=== PATIENT | female | born 2000 | race African-American/Black ===

== ENCOUNTER 2020-12-24 13:02 | Emergency (ER) | payer OTHER, SELFPAY ==
[2020-12-24 13:13] VITALS: BP 119/70; PULSE 100; RESP 15; TEMP 37.2; O2SAT 100; BMI 36.2
--- NOTE | 2020-12-24 15:06 | ED_ITS ---
HPI - Abdominal Pain General Chief Complaint: Abdominal Pain Stated Complaint: pain rt side Time Seen by Provider: 12/24/20 14:06 Source: patient Mode of arrival: ambulatory Limitations: no limitations History of Present Illness HPI narrative: This is a otherwise healthy 20-year-old female who denies any significant past medical or surgical history who presents with complaint of aching like abdominal pain some lower back pain that is been going on for the past several weeks on and off she was late for her. Did home tests and she was positive. Denies taking any control or IUD. Denies any prior or renal calculi or UTI. She does report no pain and at this time but does not have outpatient provider and wanted to know how far long she was. Denies any vaginal bleeding or discharge. No nausea vomiting or diarrhea. MD elicited complaint: abdominal pain Pertinent past history: none Location: none Quality: aching Migration to: bilateral flank Exacerbating factors: nothing Related Data Previous Rx's Medication Instructions Recorded PNV cmb#95-ferrous fumarate-FA 1 tab PO DAILY #30 tab 12/24/20 [] Allergies Allergy/AdvReac Type Severity Reaction Status Date / Time No Known Allergies Allergy Verified 12/24/20 14:06 Review of Systems Review of Systems Constitutional: No Weight loss, No Fever, No Chills, No Night Sweats, No Fatigue, No Malaise ENT/Mouth: No Hearing loss, No Ear Pain, No Nasal Congestion, No Sinus Pain, No Hoarseness, No sore throat, No Rhinorrhea, No Swallowing Difficulty Eyes: No Eye Pain, No Swelling, No Redness, No Foreign Body, No Discharge, No Vision Changes Cardiovascular: No Chest Pain, No SOB, No Dyspnea on Exertion, No Orthopnea, No Edema, No Palpitations Respiratory: No Cough, No Sputum, No Wheezing, No Smoke Exposure, No Dyspnea Gastrointestinal: No Nausea, No Vomiting, No Diarrhea, No Constipation, No Cornelius tochezia, No Melena Genitourinary: no irregular bleeding, No Dysuria, No Urinary Frequency, No Cornelius turia, No Urinary Incontinence, No Urgency, No Flank Pain, No Urinary Flow Changes, No Hesitancy Musculoskeletal: No joint pain, No Myalgias, No Joint Swelling Skin: No Skin Lesions, No rash Neuro: No Weakness, No Numbness, No Paresthesias, No Loss of Consciousness, No Dizziness, No Headache Psych: No Social Issues Heme/Lymph: No Bruising, No Bleeding,No Lymphadenopathy Endocrine: No Polyuria, No Polydipsia, No Temperature Intolerance Yes all other systems are reviewed and are negative Physical Exam Vital Signs: Vital Signs: Last Vital Signs Temp 98.4 F 12/24/20 18:00 Pulse 95 12/24/20 18:59 Resp 16 12/24/20 18:59 BP 109/66 12/24/20 18:59 Pulse Ox 96 12/24/20 18:59 Body Mass Index 36.2 Reviewed Const: General: cooperative and healthy appearing; No acute distress or intoxicated appearing Nutritional Appearance: average body habitus Orientation/consciousness: patient oriented x3 HENMT: Head: Yes normal to inspection Ears: hearing grossly normal bilaterally Eyes: General: appearance normal, both eyes and all related structures Visual Greer: normal visual greer by confrontation Neck: Neck: Yes normal visual inspection, No positive Brudzinski's sign, No positive Kernig's sign and No tender Thyroid: Thyroid normal Chest: Chest palpation & inspection: normal inspection of the chest Resp: Effort & Inspection: normal respiratory effort Cardio: Jugular venous distension: no JVD Rate: regular rate Rhythm: regular rhythm Heart sounds: S1 normal heart sound present and S2 normal heart sound present GI: Inspection: Yes normal to inspection Palpation (GI): Soft to palpation, nontender, no guarding and not rigid Percussion: Yes normal to percussion Auscultation: normal bowel sounds : General: Yes no CVA tenderness Back/Spine/Pelvis: Back: no CVA tenderness Skin: General skin exam: no rashes or lesions noted Neuro: General: patient oriented x3 Extrem: General: Yes normal to inspection Course Course Course Narrative: In review 20-year-old female with positive nonspecific lower abdominal pain and some low back pain at this time states she has pain discomfort free. Labs, hCG quant 1st trimester OB ultrasound as well as renal ultrasound ordered. Advised to remain NPO. Differential diagnosis include but not limited to early related discomfort, ectopic, spontaneous miscarriage, UTI/ STI less likely. Reevaluation(s) Reevaluation #1: In making the CBC states she may have been told in the past that she had this she is not sure. Otherwise labs are stable. HCG quant in correlation with ultrasound A tiny gestational sac may be present as described above. No poleis seen. Gestational age based upon sac size would be 4 weeks 6 days. Follow-up is recommended. Patient without pain, vaginal bleeding at this time resting comfortably. Abdominal exam reassuring. Findings reviewed with her the need for close follow-up. She does not have any OBGYN in the area she is from [place] and would like to stay with the [place] team does have discussed case with Dr. Reji PAK recommendation for follow-up in office for 48 hour hCG, discharged with SAB versus ectopic mornings which were reviewed with patient in great detail. She feels comfortable plan will discharge with vitamin. Stable for discharge. MDM - Abdominal Pain Lab Data Result diagrams: 12/24/20 15:28 12/24/20 15:28 Labs: Lab Results 12/24/20 12/24/20 12/24/20 Range/Units 15:28 15:28 15:28 WBC 6.6 (4.8-10.8) X10*3/uL RBC 4.43 (4.20-5.50) X10*6/uL Hgb 9.1 L (12.0-16.0) g/dl Hct 30.5 L (37-47) % MCV 68.8 L (80-98) fL MCH 20.5 L (27.0-33.0) pg MCHC 29.8 L (31.0-35.0) g/dl RDW 19.0 H (11.0-16.0) % Plt Count 572 H (160-400) X10*3/uL MPV 10.8 (9.4-12.3) fL Immature Gran % (Auto) 0.3 (0.0-0.4) % Neut % (Auto) 48.9 (45-73) % Lymph % (Auto) 38.2 (20-40) % Taney % (Auto) 9.4 (2-11) % Eos % (Auto) 2.4 (0-4) % Baso % (Auto) 0.8 (0-2) % Lymph # (Auto) 2.5 (1.2-4.9) X10*3/uL Taney # (Auto) 0.6 (0.1-1.2) X10*3/uL Eos # (Auto) 0.2 (0.0-0.4) X10*3/uL Baso # (Auto) 0.1 (0.0-0.2) X10*3/uL Abs Immat Gran (auto) 0.02 (0.00-0.03) X10*3/uL Absolute Neuts (auto) 3.2 (2.0-8.3) X10*3/uL Absolute Nucleated RBC 0.000 (0.0-0.012) X10*3/uL Nucleated RBC % (auto) 0.0 (0.0-0.2) /100WBC PT 12.6 (10.8-13.0) SEC INR 1.1 (0.9-1.1) APTT 32.5 (24.1-38.0) SEC Sodium 137 (135-145) mmol/L Potassium 4.6 (3.3-5.1) mmol/l Chloride 107 (96-108) mmol/L Carbon Dioxide 22 (22-29) mmol/L Anion Gap 13 (12-20) BUN 11 (9-16) mg/dL Creatinine 0.74 (0.5-1.4) mg/dL Estim Creat Clear Calc 124.2 Estimated GFR > 60 Random Glucose 73 (60-115) mg/dL Calcium 9.3 (8.4-10.2) mg/dL Total Bilirubin 0.5 (0.0-1.0) mg/dL AST 17 (5-31) U/L ALT 7 (0-31) U/L Alkaline Phosphatase 66 (39-117) U/L Total Protein 7.4 (6.5-8.0) g/dL Albumin 4.3 (3.5-5.0) g/dL Beta HCG, Quant 1429 mIU/mL Urine Color Urine Appearance Urine pH (5.0-8.0) Ur Specific [place] (1.005-1.025) Urine Protein (NEG-TRACE) MG/DL Urine Glucose (UA) (NEG) MG/DL Urine Ketones (NEG) MG/DL Urine Blood (NEG) Urine Nitrite (NEG) Ur Leukocyte Esterase (NEG) Urine RBC (0) /HPF Urine WBC (0-4) /HPF Ur Squamous Epith Cells /LPF Amorphous Sediment /LPF Urine Bacteria /LPF Granular Casts /LPF Urine Mucus /LPF Urine Test (NEGATIVE) 12/24/20 Range/Units 15:28 WBC (4.8-10.8) X10*3/uL RBC (4.20-5.50) X10*6/uL Hgb (12.0-16.0) g/dl Hct (37-47) % MCV (80-98) fL MCH (27.0-33.0) pg MCHC (31.0-35.0) g/dl RDW (11.0-16.0) % Plt Count (160-400) X10*3/uL MPV (9.4-12.3) fL Immature Gran % (Auto) (0.0-0.4) % Neut % (Auto) (45-73) % Lymph % (Auto) (20-40) % Taney % (Auto) (2-11) % Eos % (Auto) (0-4) % Baso % (Auto) (0-2) % Lymph # (Auto) (1.2-4.9) X10*3/uL Taney # (Auto) (0.1-1.2) X10*3/uL Eos # (Auto) (0.0-0.4) X10*3/uL Baso # (Auto) (0.0-0.2) X10*3/uL Abs Immat Gran (auto) (0.00-0.03) X10*3/uL Absolute Neuts (auto) (2.0-8.3) X10*3/uL Absolute Nucleated RBC (0.0-0.012) X10*3/uL Nucleated RBC % (auto) (0.0-0.2) /100WBC PT (10.8-13.0) SEC INR (0.9-1.1) APTT (24.1-38.0) SEC Sodium (135-145) mmol/L Potassium (3.3-5.1) mmol/l Chloride (96-108) mmol/L Carbon Dioxide (22-29) mmol/L Anion Gap (12-20) BUN (9-16) mg/dL Creatinine (0.5-1.4) mg/dL Estim Creat Clear Calc Estimated GFR Random Glucose (60-115) mg/dL Calcium (8.4-10.2) mg/dL Total Bilirubin (0.0-1.0) mg/dL AST (5-31) U/L ALT (0-31) U/L Alkaline Phosphatase (39-117) U/L Total Protein (6.5-8.0) g/dL Albumin (3.5-5.0) g/dL Beta HCG, Quant mIU/mL Urine Color YELLOW Urine Appearance HAZY Urine pH 5.5 (5.0-8.0) Ur Specific [place] >= 1.030 H (1.005-1.025) Urine Protein NEG (NEG-TRACE) MG/DL Urine Glucose (UA) NEG (NEG) MG/DL Urine Ketones 5 (NEG) MG/DL Urine Blood TRACE (NEG) Urine Nitrite NEG (NEG) Ur Leukocyte Esterase NEG (NEG) Urine RBC 0-2 (0) /HPF Urine WBC 1-4 (0-4) /HPF Ur Squamous Epith Cells 2+ /LPF Amorphous Sediment 1+ /LPF Urine Bacteria TRACE /LPF Granular Casts 0-2 /LPF Urine Mucus 1+ /LPF Urine Test POSITIVE H (NEGATIVE) Imaging Data First trimester OB ultrasound: Radiologist's impression: [place] [id number] ReportSigned Patient: William Shahid#: [id number]: 2000Acct:[id number]/Sex: 20 / FADM Date: 12/24/20Loc: [address]: Ordering Physician: Cristo Rick NP Date of Service: 12/24/20 Procedure(s): US OB <= 14 weeks fetus Accession Number(s): [id number] cc: Cristo Rick NP~ EXAMINATION: PELVIC ULTRASOUND CLINICAL INFORMATION: Pelvic pain with question of ectopic COMPARISON: None TECHNIQUE: Ultrasound of the pelvis was performed using both transabdominal endovaginal scanning. FINDINGS: An anteverted uterus is present measuring 7.8 x 5.5 x 6.7 cm. At least one 1 cm uterine fibroid is present. A small gestational sac is seen but no yolk sac or pole is identified. Based upon the sac size, gestational age would be 4 weeks 6 days which may be too early to see a pole. The right ovary measures 4.3 x 2.4 x 2.8 cm in a corpus luteum cyst measuring 1.8 x 1.7 x 2.1 cm. Left ovary measures 2.7 x 2.1 x 2.1 cm and appears normal. A small amount of free fluid is noted adjacent to the right ovary. US/US OB <= 14 weeks fetus IMPRESSION: A tiny gestational sac may be present as described above. No pole is seen. Gestational age based upon sac size would be 4 weeks 6 days. Follow-up is recommended Dictated By:NATHALY CONKLIN MDSigned By:<Electronically signed by NATHALY CONKLIN MD in OV>12/24/20 1757 DD/ 1504TD/TT: Program Manager Slp: KELSIE Renal ultrasound: Radiologist's impression: [address] [id number] ReportSigned Patient: William ShahidR#: [id number]: 2000Acct:[id number]/Sex: 20 / FADM Date: 12/24/20Loc: HO.EDAttending Dr: Ordering Physician: Cristo Rick NP Date of Service: 12/24/20 Procedure(s): US renal BI Accession Number(s): [id number] cc: Cristo Rick NP~ EXAMINATION: US RETROPERITONEAL LIMITED (RENAL ONLY) CLINICAL INFORMATION: Right-sided flank pain. COMPARISON: None TECHNIQUE: Multiple sonographic views of the kidneys were obtained. FINDINGS: RIGHT KIDNEY: 10.3 x 6.7 x 5.5 cm (SAG x AP x TRV). The kidney is normal in size, contour, and echogenicity. Renal cortical thickness is normal. No calculi or focal parenchymal lesions. No hydronephrosis. LEFT KIDNEY: 10.9 x 5.9 x 5.7 cm (SAG x AP x TRV). The kidney is normal in size, contour, and echogenicity. Renal cortical thickness is normal. No calculi or focal parenchymal lesions. No hydronephrosis. US/US renal BI IMPRESSION: Normal renal ultrasound. No obstructive changes seen. No renal calculi demonstrated. Dictated By:ADITI CERNA MDSigned By:<Electronically signed by ADITI CERNA MD in OV>12/24/20 1746 DD/ 1504TD/TT: Program Manager Slp: JOSE Discharge Plan Discharge Clinical Impression: Early stage of , Abdominal pain affecting Patient Disposition: Home, Self-Care Instructions: (ED), Abdominal Pain in (ED) Additional Instructions: Return to emergency room right away if use feel Early signs of an ectopic include: Light vaginal bleeding and pelvic pain Upset stomach and vomiting Sharp abdominal cramps Pain on one side of your body Dizziness or weakness Pain in your shoulder, neck, or rectum See a copy of your ultrasound was provided to you Follow-up with Dr. Reji sr in 48 hours for repeat blood test Return to emergency room right away if any concerns or worsening symptoms Thank you Prescriptions: New PNV cmb#95-ferrous fumarate-FA [] 28 mg iron- 800 mcg tablet 1 tab PO DAILY Qty: 30 RF: 0 Referrals: Henry Mendoza MD [Physician] - 2 days (Repeat labs) Interventions: ED Discharge Assessment Last Done: 12/24/20 18:58 Discharge Date/Time: 12/24/20 19:00
[2020-12-24 15:14] VITALS: BP 101/59; PULSE 80; RESP 17; TEMP 37.5; O2SAT 100
[2020-12-24] MEDS: 0.9 % Sodium Chloride 1,000 ML 999 ML IV (15:32)
[2020-12-24 15:53] LABS: MANUAL DIFF FLAG NO
[2020-12-24 15:57] LABS: Basophils Absolute Auto 0.1 X10*3/uL (0.0-0.2); Basophils Percent Auto 0.8 % (0-2); Eosinophils Absolute Auto 0.2 X10*3/uL (0.0-0.4); Eosinophils Percent Auto 2.4 % (0-4); Hematocrit 30.5 % (37-47); Hemoglobin 9.1 g/dl (12.0-16.0); Imm Gran Abs Auto 0.02 X10*3/uL (0.00-0.03); Imm Gran Pct Auto 0.3 % (0.0-0.4); Lymphocytes Absolute Auto 2.5 X10*3/uL (1.2-4.9); Lymphocytes Percent Auto 38.2 % (20-40); Mean Corpuscular HGB Conc 29.8 g/dl (31.0-35.0); Mean Corpuscular Hemoglobin 20.5 pg (27.0-33.0); Mean Corpuscular Volume 68.8 fL (80-98); Mean Platelet Volume 10.8 fL (9.4-12.3); Monocytes Absolute Auto 0.6 X10*3/uL (0.1-1.2); Monocytes Percent Auto 9.4 % (2-11); Neutrophils Absolute Auto 3.2 X10*3/uL (2.0-8.3); Neutrophils Percent Auto 48.9 % (45-73); Platelet Count 572 X10*3/uL (160-400); Red Blood Count 4.43 X10*6/uL (4.20-5.50); White Blood Count 6.6 X10*3/uL (4.8-10.8)
[2020-12-24 15:58] LABS: Glucose Urine UA NEG (NEG); Leukocyte Esterase Urine NEG (NEG); Nitrite Urine NEG (NEG); PH 5.5 (5.0-8.0); Specific Gravity - Urine >= 1.030 (1.005-1.025); Urine Blood TRACE (NEG); Urine Ketones 5 MG/DL (NEG); Urine Protein NEG (NEG-TRACE)
[2020-12-24 16:04] LABS: INTERNATIONAL NORM RATIO 1.1 (0.9-1.1); Prothrombin Time 12.6 SEC (10.8-13.0)
[2020-12-24 16:07] LABS: Partial Thromboplastin Time 32.5 SEC (24.1-38.0)
[2020-12-24 16:18] LABS: Amorphous Sediment Urine 1+ /LPF; Bacteria Urine TRACE /LPF; Granular Casts Urine 0-2 /LPF; Mucus Urine 1+ /LPF; RBC Urine 0-2 /HPF (0); Squamous Epithelial Cell Urine 2+ /LPF
[2020-12-24 16:32] LABS: Alanine Aminotransferase 7 U/L (0-31); Albumin Level 4.3 g/dL (3.5-5.0); Alkaline Phosphatase 66 U/L (39-117); Anion Gap 13 (12-20); Aspartate Amino Transferase 17 U/L (5-31); Bilirubin Total 0.5 mg/dL (0.0-1.0); Blood Urea Nitrogen 11 mg/dL (9-16); Calcium 9.3 mg/dL (8.4-10.2); Carbon Dioxide 22 mmol/L (22-29); Chloride 107 mmol/L (96-108); Creatinine Clr Calc Pharmacy 124.2; Estimated Glomerular Filt Rate > 60; Glucose Random 73 mg/dL (60-115); Potassium 4.6 mmol/l (3.3-5.1); Sodium 137 mmol/L (135-145); Total Protein 7.4 g/dL (6.5-8.0)
[2020-12-24 16:38] LABS: Appearance Urine HAZY; Color Urine YELLOW
[2020-12-24 16:40] LABS: HCG Quantitative 1429 mIU/mL
[2020-12-24 16:46] LABS: UPreg QC Valid YES; Urine Pregnancy POSITIVE (NEGATIVE)
[2020-12-24 17:39] VITALS: BP 119/66; PULSE 104; RESP 17; TEMP 37.1; O2SAT 100
[2020-12-24 18:00] VITALS: BP 106/61; PULSE 92; RESP 17; TEMP 36.9; O2SAT 99
--- NOTE | 2020-12-24 18:53 | P.CONOB_ITS ---
TOUCH UP PAINTER HAND - CN: HPI Data of Consult Consult date: 12/24/20 Primary Care Provider: None Physician Consult Narrative Narrative: Called by a LARISSA Roland regarding William Shahid is a 20 year old female who presented to the emergency room with mild suprapubic pain no vaginal bleeding no other hCG 1429 ultrasound showed intrauterine gestational sac measuring 4 weeks days no pole or yolk sac, no adnexal masses, no pelvic fluid identified by ultrasound, hematocrit 30.5 cc:: CC: COMPUTER SYSTEMS MANAGER - Review of Systems Review of Systems ROS Unobtainable: All systems reviewed & are unremarkable except as noted in HPI and below Cardiovascular: Denies Palpatations, Loss of consciousness and Chest pain Respiratory: Denies Cough, Wheezing and Shortness of breath Musculoskeletal: Denies Low back pain Gastrointestinal: Denies Heartburn, Constipation, Diarrhea, Nausea and Vomiting Genitourinary: Denies Pain with urination, Burning with urination and Urinary frequency Neurological: Denies Migranes Psychological: Denies Depression OB [facility] Social History Social History Smoked in Last 30 Days: No Use of substances other than those prescribed or required for medical reasons: No Advance Directives: No Advance Directives Information Provided: No Meds Allergies Allergy/AdvReac Type Severity Reaction Status Date / Time No Known Allergies Allergy Verified 12/24/20 14:06 TOUCH UP PAINTER HAND Physical Exam Vitals Vital signs: Temp Pulse Resp BP Pulse Ox 98.4 F 92 17 106/61 99 12/24/20 18:00 12/24/20 18:00 12/24/20 18:00 12/24/20 18:00 12/24/20 18:00 Body Mass Index 36.2 Cardiovascular Auscultation: RRR Abdomen Auscultation/Inspection/Palpation: Normal bowel sounds, Soft, Non-distended, No tenderness and Other (Exam per LARISSA Roland) Female Genitalia (Pelvic) Exam: Deferred TOUCH UP PAINTER HAND - Results Labs CBC & Chem 7: 12/24/20 15:28 12/24/20 15:28 Labs: Short CBC 12/24/20 Range/Units 15:28 WBC 6.6 (4.8-10.8) X10*3/uL Hgb 9.1 L (12.0-16.0) g/dl Hct 30.5 L (37-47) % Plt Count 572 H (160-400) X10*3/uL BMP 12/24/20 15:28 Sodium 137 Potassium 4.6 Chloride 107 Carbon Dioxide 22 BUN 11 Creatinine 0.74 Calcium 9.3 Liver Function 12/24/20 Range/Units 15:28 Total Bilirubin 0.5 (0.0-1.0) mg/dL AST 17 (5-31) U/L ALT 7 (0-31) U/L Alkaline Phosphatase 66 (39-117) U/L Albumin 4.3 (3.5-5.0) g/dL Urine 12/24/20 Range/Units 15:28 Urine Color YELLOW Urine Appearance HAZY Urine pH 5.5 (5.0-8.0) Ur Specific [place] >= 1.030 H (1.005-1.025) Urine Protein NEG (NEG-TRACE) MG/DL Urine Glucose (UA) NEG (NEG) MG/DL Urine Test POSITIVE H (NEGATIVE) Assessment and Plan (1) Early stage of : Status: Acute Discussed the differential diagnosis with LARISSA Roland including early versus possible ectopic , ultrasound showing gestational sac without yolk sac or embryo could be pseudo gestational sac in cases of ectopic . Since clinically the patient is stable with no abdominal finding no evidence of adnexal masses clinically stable recommended Repeat hCG in 48 hours and to follow-up in the office then, SAB versus ectopic warnings to be given to the patient she is to call if abdominal pain occurs vaginal bleeding.
[2020-12-24 18:59] VITALS: BP 109/66; PULSE 95; RESP 16; O2SAT 96
== END 2020-12-24 19:00 | disposition home or self-care (01) ==
PROVIDERS: Nurse Practitioner Primary Care; Emergency Provider Emergency Medicine Emergency Medical Services
DX: O26.891 Other specified pregnancy related conditions, first trimester (principal); R10.2 Pelvic and perineal pain; O34.81 Maternal care for other abnormalities of pelvic organs, first trimester; N83.11 Corpus luteum cyst of right ovary; Z3A.01 Less than 8 weeks gestation of pregnancy
CPT/HCPCS: 36415; 76775; 76801; 76817; 80053; 81001; 81025; 84702; 85025; 85610; 85730; 96360; 99283; 99284

== ENCOUNTER → 2021-01-07 09:14 | Outpatient (BNVA) | payer OTHER, SELFPAY | PROVIDERS: Visit Provider Obstetrics & Gynecology | DX: Z34.90 Encounter for supervision of normal pregnancy, unspecified, unspecified trimester (principal) | CPT/HCPCS: 99212 ==

== ENCOUNTER 2021-01-08 10:48 | Outpatient (REF) | payer OTHER, SELFPAY ==
--- NOTE | ~2021-01-08 | US_ITS ---
EXAMINATION: FIRST TRIMESTER OB ULTRASOUND CLINICAL INFORMATION: Encounter for supervision abnormal . Follow-up intrauterine gestational sac seen on prior exam exam COMPARISON: Previous first trimester OB ultrasound 12/24/2020 TECHNIQUE: Transabdominal first trimester OB ultrasound FINDINGS: There is an intrauterine gestational sac. Elroy-rump length measures 0.66 cm suggesting gestational age of 6 weeks 4 days with estimated date of delivery of 08/30/2021. There is a low normal heart rate of 114 bpm. There is a yolk sac. There is an irregularly-shaped hypoechoic collection along the anterior superior gestational sac measuring 1.8 x 1.2 x 1.8 cm suggestive of small subchorionic hemorrhage. There is a 1 cm fibroid in the anterior lower uterine segment. The right maternal ovary measures 4.5 x 2.5 x 4.1 cm and contains a 2.3 x 1.9 x 2.2 cm complex cyst. The left ovary is normal-appearing and measures 2.6 x 2.2 x 1.5 cm. There is trace fluid in the pelvis. US/US OB <= 14 weeks fetus IMPRESSION: Single viable intrauterine . From today's measurements, gestational age is estimated at 6 weeks 4 days with estimated date of delivery of 08/30/2021. Low normal heart rate of 114 bpm. 1.8 x 1.2 x 1.8 cm fluid collection adjacent to the gestational sac suggestive of subchorionic hemorrhage.
== END 2021-01-08 10:49 | disposition home or self-care (01) ==
LOC: HO.US 10:48
PROVIDERS: Visit Provider Obstetrics & Gynecology
DX: O35.9XX0 Maternal care for (suspected) fetal abnormality and damage, unspecified, not applicable or unspecified (principal); Z3A.01 Less than 8 weeks gestation of pregnancy
CPT/HCPCS: 76801

== ENCOUNTER 2021-01-15 20:08 | Emergency (ER) | payer OTHER, SELFPAY ==
--- NOTE | ~2021-01-15 | US_ITS ---
EXAMINATION: US OBSTETRICAL CLINICAL INFORMATION: Bleeding and pain. 7 weeks . COMPARISON: 01/08/2021 TECHNIQUE: Real-time ultrasound was performed transabdominally of the pelvis. FINDINGS: The uterus is anteverted in position. Within the endometrial cavity is a well formed gestation sac. A yolk sac is present. The crown-rump length of 1.65 cm corresponds to a menstrual age of 8 weeks 1 day. This yields an estimated date of delivery of 08/27/2021. This corresponds with gestational age by last menstrual period. anatomic survey is normal for age. The heart beat is regular and normal rate measuring 156 beats per minute. There is a small fluid collection adjacent to the gestational sac measuring 1 x 0.6 x 0.6 cm, decreased in size from prior. Both ovaries are identified. The right ovary measures 4.6 x 3.4 x 3.3 cm. There is a corpus luteal cyst present. The left ovary measures 3.9 x 2.4 x 1.7 cm. No adnexal mass. Other significant findings: No free fluid. US/US OB <= 14 weeks fetus IMPRESSION: Single live intrauterine estimated to be 8 weeks 1 day menstrual age. Estimated date of delivery is 08/27/2021. Decreasing size of the fluid collection adjacent to the gestational sac suggesting resolving subchorionic hemorrhage.
[2021-01-15 21:45] VITALS: BP 107/88; PULSE 97; RESP 18; TEMP 37.2; O2SAT 97; BMI 36.6
[2021-01-15 22:23] LABS: Glucose Urine UA NEG (NEG); Leukocyte Esterase Urine NEG (NEG); Nitrite Urine NEG (NEG); PH 6.5 (5.0-8.0); Urine Blood NEG (NEG); Urine Ketones 5 MG/DL (NEG); Urine Protein NEG (NEG-TRACE)
[2021-01-15 22:24] LABS: Appearance Urine CLEAR; Color Urine YELLOW
[2021-01-15 22:25] LABS: UPreg QC Valid YES; Urine Pregnancy POSITIVE (NEGATIVE)
[2021-01-15 23:33] VITALS: BP 127/66; PULSE 88; RESP 16; O2SAT 99
--- NOTE | 2021-01-15 23:33 | ED.PREGNANCY ---
HPI - General Chief complaint: Vaginal Bleeding Stated complaint: vag bleed Time Seen by Provider: 01/15/21 23:31 Source: patient Mode of arrival: ambulatory Limitations: no limitations History of Present Illness HPI Narrative: 20 yo female G1 D = US follows at [facility] [place] comes in with c/o of early this AM had pelvic cramping and one episode of brb but no clots - has not had any other symptoms the rest of the day, no recent intercourse has known subchorionic hemorrhage from US on 01/08 MD Complaint: vaginal bleeding and abdominal trauma Onset (ago): day(s) (several ) Pain Consistency: other (RESOLVED) Location: pelvis Severity: mild Quality: Cramping Radiation: pelvis Relieving factors: none Exacerbating factors: none Associated symptoms: vaginal bleeding (one episode of brb no clots) Vaginal discharge: none Vaginal bleeding: light OB History - Current : no complications OB History - Previous Pregnancies: no complications care: followed by OB and previous ultrasound confirms IUP Related Data : 1 Previous Rx's Medication Instructions Recorded PNV cmb#95-ferrous fumarate-FA 1 tab PO DAILY #30 tab 12/24/20 [] Allergies Allergy/AdvReac Type Severity Reaction Status Date / Time No Known Allergies Allergy Verified 01/15/21 21:45 Review of Systems Review of Systems: Constitutional : No Fever, No Chills ENT/Mouth : No sore throat, No Rhinorrhea Eyes: No Eye Pain, No Redness Cardiovascular : No Chest Pain, No SOB Respiratory : No Cough, No Sputum, No Wheezing Gastrointestinal : no Nausea, No Vomiting, No Diarrhea, positive abdominal pain, Genitourinary : positive irregular bleeding, No Dysuria, No Urinary Frequency, positive pelvic pain Musculoskeletal : No Myalgias Skin : No rash Neuro : No Weakness, No Headache Psych : No Anxiety/Panic, No Depression Heme/Lymph: No bruising, No Lymphadenopathy Endocrine : No Polyuria, No Polydipsia All other systems reviewed and are negative PMFSH Past Medical History Medical History Anemia : 1 Social History Social History Alcohol intake: never Smoking Status: Never smoker Advance Directives: No Advance Directives Information Provided: Yes Physical Exam Vital Signs: Vital Signs: Last Vital Signs Temp 99.0 F 01/15/21 21:45 Pulse 86 01/16/21 02:14 Resp 20 01/16/21 02:14 BP 125/76 01/16/21 02:14 Pulse Ox 100 01/16/21 02:14 Body Mass Index 36.6 Appearance: Alert. Oriented X3. No acute distress. Eyes: Pupils equal, round and reactive to light. ENT: Pharynx normal. Neck: Normal inspection. Neck supple. CVS: Normal heart rate and rhythm. Pulses normal. Respiratory: No respiratory distress. Breath sounds normal. Abdomen: Soft and nontender. : os closed no blood noted Skin: Skin warm and dry. Normal skin color. Normal skin turgor. Extremities: No lower extremity edema. No calf ttp Neuro: Oriented X 3. No motor deficit. No sensory deficit. Course Course Course Narrative: will give Rhogam - discussed with Dr. Tsai MDM - OB/Uterine Contractions MDM Narrative Medical decision making narrative: [age]yo female with pelvic pain and brb this AM not related to intercourse has resolved she is G1 has known IUP with subchorionic hemorrhage at this time will obtain labs, quant, Rh status and pelvic US dispo per results and findings. Lab Data Result diagrams: 01/15/21 23:38 01/15/21 23:38 Labs: Lab Results 01/15/21 01/15/21 01/15/21 Range/Units 21:55 23:38 23:38 WBC 9.6 (4.8-10.8) X10*3/uL RBC 4.71 (4.20-5.50) X10*6/uL Hgb 10.5 L (12.0-16.0) g/dl Hct 34.1 L (37-47) % MCV 72.4 L (80-98) fL MCH 22.3 L (27.0-33.0) pg MCHC 30.8 L (31.0-35.0) g/dl RDW 24.9 H (11.0-16.0) % Plt Count 353 D (160-400) X10*3/uL MPV 10.0 (9.4-12.3) fL Immature Gran % (Auto) 0.2 (0.0-0.4) % Neut % (Auto) 57.0 (45-73) % Lymph % (Auto) 30.9 (20-40) % Dent % (Auto) 6.5 (2-11) % Eos % (Auto) 4.7 H (0-4) % Baso % (Auto) 0.7 (0-2) % Lymph # (Auto) 3.0 (1.2-4.9) X10*3/uL Dent # (Auto) 0.6 (0.1-1.2) X10*3/uL Eos # (Auto) 0.5 H (0.0-0.4) X10*3/uL Baso # (Auto) 0.1 (0.0-0.2) X10*3/uL Abs Immat Gran (auto) 0.02 (0.00-0.03) X10*3/uL Absolute Neuts (auto) 5.5 (2.0-8.3) X10*3/uL Absolute Nucleated RBC 0.000 (0.0-0.012) X10*3/uL Nucleated RBC % (auto) 0.0 (0.0-0.2) /100WBC PT 11.9 (10.8-13.0) SEC INR 1.0 (0.9-1.1) APTT 32.2 (24.1-38.0) SEC Sodium (135-145) mmol/L Potassium (3.3-5.1) mmol/L Chloride (96-108) mmol/L Carbon Dioxide (22-29) mmol/L Anion Gap (12-20) BUN (9-16) mg/dL Creatinine (0.5-1.4) mg/dL Estim Creat Clear Calc Estimated GFR Random Glucose (60-115) mg/dL Calcium (8.4-10.2) mg/dL Total Bilirubin (0.0-1.0) mg/dL Direct Bilirubin (0.0-0.5) mg/dL AST (5-31) U/L ALT (0-31) U/L Alkaline Phosphatase (39-117) U/L Total Protein (6.5-8.0) g/dL Albumin (3.5-5.0) g/dL Beta HCG, Quant mIU/mL Urine Color YELLOW Urine Appearance CLEAR Urine pH 6.5 (5.0-8.0) Ur Specific [place] 1.020 (1.005-1.025) Urine Protein NEG (NEG-TRACE) MG/DL Urine Glucose (UA) NEG (NEG) MG/DL Urine Ketones 5 (NEG) MG/DL Urine Blood NEG (NEG) Urine Nitrite NEG (NEG) Ur Leukocyte Esterase NEG (NEG) Urine Test POSITIVE H (NEGATIVE) Blood Type 01/15/21 01/15/21 Range/Units 23:38 23:38 WBC (4.8-10.8) X10*3/uL RBC (4.20-5.50) X10*6/uL Hgb (12.0-16.0) g/dl Hct (37-47) % MCV (80-98) fL MCH (27.0-33.0) pg MCHC (31.0-35.0) g/dl RDW (11.0-16.0) % Plt Count (160-400) X10*3/uL MPV (9.4-12.3) fL Immature Gran % (Auto) (0.0-0.4) % Neut % (Auto) (45-73) % Lymph % (Auto) (20-40) % Dent % (Auto) (2-11) % Eos % (Auto) (0-4) % Baso % (Auto) (0-2) % Lymph # (Auto) (1.2-4.9) X10*3/uL Dent # (Auto) (0.1-1.2) X10*3/uL Eos # (Auto) (0.0-0.4) X10*3/uL Baso # (Auto) (0.0-0.2) X10*3/uL Abs Immat Gran (auto) (0.00-0.03) X10*3/uL Absolute Neuts (auto) (2.0-8.3) X10*3/uL Absolute Nucleated RBC (0.0-0.012) X10*3/uL Nucleated RBC % (auto) (0.0-0.2) /100WBC PT (10.8-13.0) SEC INR (0.9-1.1) APTT (24.1-38.0) SEC Sodium 135 (135-145) mmol/L Potassium 3.8 (3.3-5.1) mmol/L Chloride 103 (96-108) mmol/L Carbon Dioxide 23 (22-29) mmol/L Anion Gap 13 (12-20) BUN 7 L (9-16) mg/dL Creatinine 0.73 (0.5-1.4) mg/dL Estim Creat Clear Calc 126.6 Estimated GFR > 60 Random Glucose 82 (60-115) mg/dL Calcium 9.6 (8.4-10.2) mg/dL Total Bilirubin 0.4 (0.0-1.0) mg/dL Direct Bilirubin < 0.2 (0.0-0.5) mg/dL AST 17 (5-31) U/L ALT 10 (0-31) U/L Alkaline Phosphatase 54 (39-117) U/L Total Protein 7.3 (6.5-8.0) g/dL Albumin 4.3 (3.5-5.0) g/dL Beta HCG, Quant [id number] mIU/mL Urine Color Urine Appearance Urine pH (5.0-8.0) Ur Specific [place] (1.005-1.025) Urine Protein (NEG-TRACE) MG/DL Urine Glucose (UA) (NEG) MG/DL Urine Ketones (NEG) MG/DL Urine Blood (NEG) Urine Nitrite (NEG) Ur Leukocyte Esterase (NEG) Urine Test (NEGATIVE) Blood Type A Negative Discharge Plan Discharge Clinical Impression: Subchorionic hematoma Qualifiers: Fetus number: single or unspecified fetus Trimester: first trimester Qualified Code(s): O41.8X10 - Other specified disorders of amniotic fluid and membranes, first trimester, not applicable or unspecified Patient Disposition: Home, Self-Care Instructions: Rho(D) Immune Globulin (By injection), Subchorionic Hemorrhage (ED) Additional Instructions: return to ED for any worsening symptoms or concerns Prescriptions: No Action PNV cmb#95-ferrous fumarate-FA [] 28 mg iron- 800 mcg tablet 1 tab PO DAILY Qty: 30 RF: 0 Referrals: Henry Mendoza MD [Physician] - 2 days Stand Alone Forms: Work/School Release Interventions: ED Discharge Assessment Last Done: 01/16/21 02:25 Discharge Date/Time: 01/16/21 02:26
--- NOTE | 2021-01-15 23:34 | PC.NURSE ---
at bedside for primary eval.
[2021-01-15] MEDS: 0.9 % Sodium Chloride 1,000 ML 999 ML IVCONT (23:45)
[2021-01-15 23:49] LABS: MANUAL DIFF FLAG NO
--- NOTE | 2021-01-15 23:49 | PC.NURSE ---
IV established, labs obtained and sent. Pt aware of plan to U/S. Pt resting in bed, call deleon within reach, awaiting US. VSS. Continue to monitor.
[2021-01-15 23:50] LABS: Basophils Absolute Auto 0.1 X10*3/uL (0.0-0.2); Basophils Percent Auto 0.7 % (0-2); Eosinophils Absolute Auto 0.5 X10*3/uL (0.0-0.4); Eosinophils Percent Auto 4.7 % (0-4); Hematocrit 34.1 % (37-47); Hemoglobin 10.5 g/dl (12.0-16.0); Imm Gran Abs Auto 0.02 X10*3/uL (0.00-0.03); Imm Gran Pct Auto 0.2 % (0.0-0.4); Lymphocytes Percent Auto 30.9 % (20-40); Mean Corpuscular HGB Conc 30.8 g/dl (31.0-35.0); Mean Corpuscular Hemoglobin 22.3 pg (27.0-33.0); Mean Corpuscular Volume 72.4 fL (80-98); Monocytes Absolute Auto 0.6 X10*3/uL (0.1-1.2); Monocytes Percent Auto 6.5 % (2-11); Neutrophils Absolute Auto 5.5 X10*3/uL (2.0-8.3); Platelet Count 353 X10*3/uL (160-400); Red Blood Count 4.71 X10*6/uL (4.20-5.50); Red Cell Distribution Width 24.9 % (11.0-16.0); White Blood Count 9.6 X10*3/uL (4.8-10.8)
[2021-01-15 23:56] LABS: Prothrombin Time 11.9 SEC (10.8-13.0)
[2021-01-15 23:58] LABS: Partial Thromboplastin Time 32.2 SEC (24.1-38.0)
[2021-01-16 00:28] LABS: Alanine Aminotransferase 10 U/L (0-31); Albumin Level 4.3 g/dL (3.5-5.0); Alkaline Phosphatase 54 U/L (39-117); Anion Gap 13 (12-20); Aspartate Amino Transferase 17 U/L (5-31); Bilirubin Direct < 0.2 mg/dL (0.0-0.5); Bilirubin Total 0.4 mg/dL (0.0-1.0); Blood Urea Nitrogen 7 mg/dL (9-16); Calcium 9.6 mg/dL (8.4-10.2); Carbon Dioxide 23 mmol/L (22-29); Chloride 103 mmol/L (96-108); Creatinine Clr Calc Pharmacy 126.6; Estimated Glomerular Filt Rate > 60; Glucose Random 82 mg/dL (60-115); Potassium 3.8 mmol/L (3.3-5.1); Sodium 135 mmol/L (135-145); Total Protein 7.3 g/dL (6.5-8.0)
--- NOTE | 2021-01-16 00:31 | PC.NURSE ---
Off to U/S on hospital bed.
--- NOTE | 2021-01-16 01:23 | PC.NURSE ---
Pt brought to U/S in wheelchair by this RN.
--- NOTE | 2021-01-16 02:00 | PC.NURSE ---
MD at bedside for pelvic, this RN as barkeeper, pt tolerating procedure well.
[2021-01-16] MEDS: Rho(D) Immune Globulin 300 MCG SYRINGE IM (02:10)
[2021-01-16 02:14] VITALS: BP 125/76; PULSE 86; RESP 20; O2SAT 100
--- NOTE | 2021-01-16 02:14 | PC.NURSE ---
Medicated with Rhogam to right deltoid. IV removed. VSS. Awaiting discharge.
== END 2021-01-16 02:26 | disposition home or self-care (01) ==
PROVIDERS: Emergency Provider Emergency Medicine
DX: O41.8X10 Other specified disorders of amniotic fluid and membranes, first trimester, not applicable or unspecified (principal); O36.0910 Maternal care for other rhesus isoimmunization, first trimester, not applicable or unspecified; O99.011 Anemia complicating pregnancy, first trimester; O34.81 Maternal care for other abnormalities of pelvic organs, first trimester; N83.11 Corpus luteum cyst of right ovary; Z3A.08 8 weeks gestation of pregnancy
CPT/HCPCS: 36415; 76801; 80048; 80076; 81003; 81025; 84702; 85025; 85610; 85730; 86900; 86901; 96360; 96372; 99284; J2790

== ENCOUNTER 2021-01-22 10:27 | Outpatient (REF) | payer OTHER, SELFPAY ==
--- NOTE | ~2021-01-22 | US_ITS ---
EXAMINATION: US OBSTETRICAL ULTRASOUND CLINICAL INFORMATION: Encounter for supervision abnormal . COMPARISON: Previous exams most recent 01/16/2021. LMP: 01/23/2020. Gestational age by maternal dates is 8 weeks 5 days. Estimated date of delivery by maternal dates is 08/29/2021. TECHNIQUE: Transabdominal first trimester OB ultrasound FINDINGS: There is a single intrauterine gestational sac with visible yolk sac, embryo/fetus, and cardiac activity. There is a small hypoechoic collection anterior to the gestational sac measuring 1 x 0.4 x 1.2 cm questionable for small subchorionic hemorrhage. HR: 165 beats per minute. CRL (crown rump length): 2.3 cm (9 weeks 0 days +/- 4 days). BEBA (estimated date of delivery): 08/27/2021 +/- 4 days. MATERNAL ADNEXA: The right maternal ovary measures 6 x 2.7 x 2.8 cm. There is a 3.1 x 2.5 x 2.2 cm complex right ovarian cyst probably representing a corpus luteal cyst.. The left maternal ovary measures 3.3 x 1.5 x 2.7 cm. No maternal pelvic ascites. US/US OB <= 14 weeks fetus IMPRESSION: 1. Single intrauterine gestation with ultrasound gestational age of 9 weeks 0 days +/- 4 days. 2. Estimated date of delivery is 08/27/2021 +/- 4 days. 3. Enlarged right ovary. 3.1 x 2.5 x 2.2 cm probable complex luteal cyst.
== END 2021-01-22 10:28 | disposition home or self-care (01) ==
LOC: HO.US 10:27
PROVIDERS: Visit Provider Obstetrics & Gynecology
DX: Z34.90 Encounter for supervision of normal pregnancy, unspecified, unspecified trimester (principal); Z3A.08 8 weeks gestation of pregnancy
CPT/HCPCS: 76801

== ENCOUNTER → 2021-01-24 11:41 | Outpatient (BNVA) | payer OTHER, SELFPAY | PROVIDERS: Visit Provider Obstetrics & Gynecology ==

== ENCOUNTER → 2021-01-29 13:12 | Outpatient (BNVA) | payer OTHER, SELFPAY | PROVIDERS: Visit Provider Advanced Practice Midwife | DX: Z13.89 Encounter for screening for other disorder (principal) | CPT/HCPCS: 99212 ==

== ENCOUNTER 2021-02-13 08:57 | Outpatient (REF) | payer OTHER, SELFPAY ==
[2021-02-13 17:54] LABS: CT PCR NOT DETECTED (Not Detect.); NG PCR NOT DETECTED (Not Detect.)
[2021-02-14 09:52] LABS: BV Int Neg Control Negative (Negative); BV Int Pos Control Positive (Positive)
== END 2021-02-13 08:58 | disposition home or self-care (01) ==
LOC: HO.LAB 08:57
PROVIDERS: Visit Provider Advanced Practice Midwife
DX: O99.011 Anemia complicating pregnancy, first trimester (principal); F17.200 Nicotine dependence, unspecified, uncomplicated; Z12.4 Encounter for screening for malignant neoplasm of cervix
CPT/HCPCS: 81003; 87480; 87491; 87510; 87591; 87660; 88142; 99212

== ENCOUNTER 2021-02-14 12:17 | Outpatient (REF) | payer OTHER, SELFPAY | END 2021-02-14 12:18 | disposition home or self-care (01) | LOC: HO.LAB 12:17 | PROVIDERS: Visit Provider Advanced Practice Midwife | DX: Z13.89 Encounter for screening for other disorder (principal) ==

== ENCOUNTER 2021-02-15 11:26 | Outpatient (REF) | payer OTHER, SELFPAY ==
--- NOTE | ~2021-02-15 | US_ITS ---
EXAMINATION: OBSTETRICAL ULTRASOUND, FIRST TRIMESTER HISTORY: 20-year-old at 12.1 weeks of gestation BMI 37.9 NT screening COMPARISON: 01/22/2021 TECHNIQUE: Real time transabdominal imaging with color and M-mode Doppler. FINDINGS: A single, live IUP CRL of 57.6 mm c/w 12.3wks is noted. Heart Rate: 163 beats per minute. Normal yolk sac seen. NT was 1.05.mm. NB Present The embryo appears sonographically wnl for this GA. Both maternal ovaries are seen and appear normal. GESTATIONAL AGE: 1. Established GA: 12.1 wks 2. GA from AUA: 12.3 wks ESTIMATED DATE OF DELIVERY: 1. Established BEBA: 08/29/2021 2. BEBA from A: 08/27/2021 US/US OB 1T nuc measure IMPRESSION: 1. A single live IUP 2. Size equals dates 3. NT of 1.05 mm MFM Consultation: I reviewed the ultrasound findings along with significance of NT measurement. The NT of less than 3mm is generally reassuring. However, the sensitivity for T21 detection is only 60%. I reviewed the availability of serum aneuploidy screening which includes cell-free DNA and placental protein based tests. I discussed the sensitivity, false-positive rate, and other limitations associated with each test. I also reviewed the availability of invasive diagnostic tests that are associated small but definite risk of miscarriage. We also reviewed the differences between screening tests and diagnostic tests. After our discussion, she opted for the First trimester screening that is based on cell-free DNA or non-invasive testing (NIPT). The result will be faxed to your office in approximately 7 days. A follow up at 18 weeks for survey has been scheduled. Thank you very much for this referral. Total time 20 minutes. The time spent was devoted to counseling the patient about the disease and diagnosis, coordinating care including reviewing her records, pertinent lab data and studies, as well as discussing diagnostic evaluation and workup, plan therapeutic interventions and future disposition of care. This includes any additional research needed to obtain further information in formulating the plan of care of this patient. This note was generated with a voice recognition program. Please excuse any errors which may have been overlooked during my review of this note. Sometimes these errors may affect the content or meaning of a given sentence.
== END 2021-02-15 11:27 | disposition home or self-care (01) ==
LOC: HO.US 11:26
PROVIDERS: Visit Provider Advanced Practice Midwife
DX: Z34.91 Encounter for supervision of normal pregnancy, unspecified, first trimester (principal); Z36.82 Encounter for antenatal screening for nuchal translucency
CPT/HCPCS: 76813

== ENCOUNTER 2021-03-13 09:20 | Outpatient (REF) | payer OTHER, SELFPAY ==
[2021-03-13 11:43] LABS: MANUAL DIFF FLAG NO
[2021-03-13 11:53] LABS: Basophils Absolute Auto 0.1 X10*3/uL (0.0-0.2); Basophils Percent Auto 0.7 % (0-2); Eosinophils Absolute Auto 0.4 X10*3/uL (0.0-0.4); Eosinophils Percent Auto 5.6 % (0-4); Hematocrit 37.4 % (37-47); Hemoglobin 11.9 g/dl (12.0-16.0); Imm Gran Abs Auto 0.01 X10*3/uL (0.00-0.03); Imm Gran Pct Auto 0.1 % (0.0-0.4); Lymphocytes Absolute Auto 1.9 X10*3/uL (1.2-4.9); Lymphocytes Percent Auto 27.4 % (20-40); Mean Corpuscular HGB Conc 31.8 g/dl (31.0-35.0); Mean Corpuscular Hemoglobin 25.3 pg (27.0-33.0); Mean Corpuscular Volume 79.4 fL (80-98); Mean Platelet Volume 10.7 fL (9.4-12.3); Monocytes Absolute Auto 0.5 X10*3/uL (0.1-1.2); Monocytes Percent Auto 6.8 % (2-11); Neutrophils Percent Auto 59.4 % (45-73); Platelet Count 273 X10*3/uL (160-400); Red Blood Count 4.71 X10*6/uL (4.20-5.50); Red Cell Distribution Width 21.3 % (11.0-16.0); White Blood Count 6.8 X10*3/uL (4.8-10.8)
[2021-03-13 12:26] LABS: Amphetamine Screen Urine Not Detected (Not Detect); Barbiturates, Urine Not Detected (Not Detect); Benzodiazepines Screen Urine Not Detected (Not Detect); Cannabinoid Screen Urine Not Detected (Not Detect); Cocaine Screen Urine Not Detected (Not Detect); Opiate Screen Urine Not Detected (Not Detect); Phencyclidine Screen Urine Not Detected (Not Detect)
[2021-03-13 12:28] LABS: Sickle Cell Scr NEGATIVE (NEGATIVE)
[2021-03-13 16:52] LABS: Glucose Urine UA NEG (NEG); Leukocyte Esterase Urine NEG (NEG); Nitrite Urine NEG (NEG); Specific Gravity - Urine >= 1.030 (1.005-1.025); Urine Blood NEG (NEG); Urine Ketones NEG (NEG); Urine Protein NEG (NEG-TRACE)
[2021-03-13 16:59] LABS: Appearance Urine CLOUDY; Color Urine YELLOW
[2021-03-13 17:00] LABS: Mucus Urine TRACE /LPF; RBC Urine 0 /HPF (0); Squamous Epithelial Cell Urine TRACE /LPF; WBC Urine 0 /HPF (0-4)
[2021-03-15 07:50] LABS: HIV AB/AG Nonreactive (Nonreactive); HIV Num 1 0.06 S/CO (0.00-0.99); ~Hepatitis C Antibody Nonreactive (Nonreactive)
[2021-03-15 08:07] LABS: HBsAGNum1 0.35 S/CO (0.00-0.99); Hepatitis B Surface Antigen Negative (Negative)
== END 2021-03-13 09:21 | disposition home or self-care (01) ==
LOC: HO.LAB 09:20
PROVIDERS: Absent Provider Advanced Practice Midwife; Visit Provider Advanced Practice Midwife
DX: O26.892 Other specified pregnancy related conditions, second trimester (principal); O99.332 Smoking (tobacco) complicating pregnancy, second trimester; R30.0 Dysuria; Z3A.16 16 weeks gestation of pregnancy
CPT/HCPCS: 80307; 81001; 81003; 85025; 85660; 86762; 86787; 86803; 86850; 86870; 86885; 86886; 86900; 86901; 87086; 87340; 87389; 99212

== ENCOUNTER 2021-03-29 13:34 | Outpatient (REF) | payer OTHER, SELFPAY ==
--- NOTE | ~2021-03-29 | US_ITS ---
EXAMINATION: US OBSTETRICAL CLINICAL INFORMATION: 20-year-old at 18.1 weeks of gestation Screening for anomaly High BMI COMPARISON: 02/15/2021 TECHNIQUE: Real-time transabdominal ultrasound was performed using C1-5 megahertz transducer. FINDINGS: A single, active, fetus is seen in breech presentation. The placenta is posterior without previa, and the amniotic fluid volume is wnl. MEASUREMENTS: 1. Biparietal Diameter: 3.9 cm; 18.0 wks 2. Occipital Frontal Diameter: 5.7 cm 3. Head Circumference: 15.9 cm; 18.6 wks 4. Abdominal Circumference: 12.7 cm; 18.2 wks 5. Femur Length: 2.8 cm; 18.4 wks 6. Humerus Length: 2.9 cm; 19.3 wks 7. Tibia Length: 2.5 cm; 18.6 wks 8. Ulna Length: 2.9 cm; 21.0 wks 9. Lateral ventricle: 0.9 cm 10. Cerebellum: 1.8 cm; 19.0 wks 11. Cisterna Magna: 0.33 cm 12. Nuchal Fold: 4.8 mm 13. Heart Rate: 149 beats per minute Rt ovary: normal Lt ovary: normal Cervical length 3.5 cm on T/A. GESTATIONAL AGE: 1. Established GA: 18.1 wks 2. GA from [facility]: 18.3 wks ESTIMATED DATE OF DELIVERY: 1. Established BEBA: 08/29/2021 2. BEBA from [facility]: 08/27/2021 ANATOMY: Evaluation of the cardiac anatomy was suboptimal. Only aortic and ductal arches are seen. The visualized anatomy includes but not limited to: 1. Cranium: Normal 2. Intracranial anatomy: cavum septum pellucidi, lateral ventricles, choroid plexus, cerebellum, posterior fossa, third and fourth ventricles. 3. face: orbits, lip/palate, profile, nasal bone 4. Heart: Normal aortic and ductal arches. Rest of the cardiac anatomy was suboptimally seen due to position.. 5. Diaphragm: Normal 6. Abdominal wall: Normal 7. Cord Insertion: Normal 8. Spine: Cervical, thoracic, lumbar, sacral. 9. Stomach: Normal size and shape 10. Right Kidney: Normal 11. Left Kidney: Normal 12. 3 vessel cord: Normal 13. Upper extremity: Open hands, fifth digit. 14. Lower extremity: Tibia, fibula, bilateral feet. 15. Bladder: Normal 16. Genitalia: Female, patient aware US/US OB /maternal detail IMPRESSION: 1. Single, living, intrauterine with appropriate biometry. 2. Incomplete survey due to maternal body habitus and position. No abnormalities were seen in visualized anatomy. DISCUSSION: I reviewed today's ultrasound findings. We discussed the limitations of ultrasound in diagnosing aneuploidy and other congenital abnormalities. I reviewed the differences between screening test and diagnostic test. Amniocentesis was discussed and declined. She was informed that the baseline incidence of congenital abnormalities is approximately 3-5%. Not all these conditions are diagnosable in utero. RECOMMENDATIONS: 1. A follow-up has been scheduled in 3 weeks. Thank you for allowing me to participate in her care. Total time 30 minutes. The time spent was devoted to counseling the patient about the disease and diagnosis, coordinating care including reviewing her records, pertinent lab data and studies, as well as discussing diagnostic evaluation and workup, plan therapeutic interventions and future disposition of care. This includes any additional research needed to obtain further information in formulating the plan of care of this patient. This note was generated with a voice recognition program. Please excuse any errors which may have been overlooked during my review of this note. Sometimes these errors may affect the content or meaning of a given sentence.
== END 2021-03-29 13:35 | disposition home or self-care (01) ==
LOC: HO.US 13:34
PROVIDERS: PCP Internal Medicine; Visit Provider Advanced Practice Midwife
DX: O35.9XX0 Maternal care for (suspected) fetal abnormality and damage, unspecified, not applicable or unspecified (principal); Z3A.18 18 weeks gestation of pregnancy
CPT/HCPCS: 76811

== ENCOUNTER → 2021-04-10 12:55 | Outpatient (BNVA) | payer OTHER, SELFPAY | PROVIDERS: Visit Provider Advanced Practice Midwife | DX: Z34.92 Encounter for supervision of normal pregnancy, unspecified, second trimester (principal); Z3A.20 20 weeks gestation of pregnancy | CPT/HCPCS: 99212 ==

== ENCOUNTER 2021-04-19 14:06 | Outpatient (REF) | payer OTHER, SELFPAY ==
--- NOTE | ~2021-04-19 | US_ITS ---
EXAMINATION: OBSTETRICAL ULTRASOUND, Follow up HISTORY: 20-year-old at the 21.1 weeks of gestation Follow-up cardiac anatomy COMPARISON: 03/29/2021 TECHNIQUE: Real time transabdominal imaging with color and M-mode Doppler. PRESENTATION: Breech PLACENTA LOCATION: Posterior without previa AMNIOTIC FLUID: Normal MEASUREMENTS: 1. Biparietal Diameter: 4.9 cm; 20.6 wks 2. Head Circumference: 19.3 cm; 21.4 wks 3. Abdominal Circumference: 17.2 cm; 22.2 wks 4. Femur Length: 3.7 cm; 21.6 wks 5. Heart Rate: 156 beats per minute WEIGHT: Estimated weight is 460 grams (1 lbs 0 oz) -- 83 %. Normal views of lateral cerebral ventricle, profile, nose/lips, 4ch view, LVOT, RVOT, 3 vessel trachea, three-vessel view, aortic and ductal arches. GESTATIONAL AGE: 1. Established GA: 21.1 wks 2. GA from AUA: 21.5 wks ESTIMATED DATE OF DELIVERY: 1. Established BEBA: 08/29/2021 2. BEBA from [facility]: 08/25/2021 US/US OB follow up IMPRESSION: 1. A single fetus with appropriate interval growth. 2. Previously limited views of the anatomy were seen as listed above. Normal cardiac anatomy. 3. This completes the survey. I reviewed the limitations of ultrasound in diagnosing aneuploidy and other congenital abnormalities. Amniocentesis was again reviewed and she declined. She was informed that the baseline instance of congenital abnormalities and defects in the general population is approximately 3-5%. Not all these conditions are diagnosable in utero. RECOMMENDATIONS: 1. f/u PRN Thank you very much for this referral. This note was generated with a voice recognition program. Please excuse any errors which may have been overlooked during my review of this note. Sometimes these errors may affect the content or meaning of a given sentence.
== END 2021-04-19 14:07 | disposition home or self-care (01) ==
LOC: HO.US 14:06
PROVIDERS: Visit Provider Advanced Practice Midwife
DX: Z36.3 Encounter for antenatal screening for malformations (principal)
CPT/HCPCS: 76816

== ENCOUNTER → 2021-05-08 13:30 | Outpatient (BNVA) | payer OTHER, SELFPAY | PROVIDERS: Visit Provider Obstetrics & Gynecology | DX: O99.512 Diseases of the respiratory system complicating pregnancy, second trimester (principal); Z3A.24 24 weeks gestation of pregnancy | CPT/HCPCS: 81003; 99212 ==

== ENCOUNTER 2023-07-08 08:23 | Outpatient (AMB) | payer OTHER, SELFPAY ==
[2023-07-08 08:26] VITALS: BP 110/68; PULSE 92; O2SAT 99; BMI 43.0
--- NOTE | 2023-07-08 08:26 | MHC.PC.OV ---
Vital Signs 07/08/23 08:26 Height 5 ft 2 in Weight 235 lb 0.4 oz BMI 43.0 BP 110/68 Blood Pressure Location Lt brachial Position Sitting Pulse 92 Pulse Source Pulse Oximeter Temp Source Skin Pulse Oximetry (%) 99 Oxygen Delivery Method Room Air Intake Visit Reasons: New patient-Asthma Staff Anesthesiologist Required: No Allergies No Known Allergies Allergy (Verified 07/08/23 08:35) Medication List - Last Reconciled 07/08/23 by CODY Friedman multivitamin 1 tab PO DAILY Tobacco use date assessed: 07/08/23 Dental Screening Dental Screen Date: 07/08/23 Did you have a dental visit in the last 12 months?: No Did you have a dental problem in the last 6 months where you did not have access to dental care?: No HPI New patient-Asthma HPI Details Patient is a 22-year-old female who presents today to [facility] care. No PCP in the past. Medical history significant for asthma, presence of IUD, and back pain since having epidural in 2020, neck pain for the past 2 weeks. Patient reports that back pain neck pain or worse with activity, better at rest. She denies changes in bowel/bladder, no numbness or tingling. Does not take anything for pain. Patient reports that she will be starting Ozempic for weight management through telehealth. No shortness of breath or chest pain. Reports allergies with intermittent clear nasal discharge. 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 [facility] Medical History Anemia Dysuria during in second trimester Early stage of Encounter for screening for malformation using ultrasound SARS-CoV-2 positive Surgical History No pertinent past surgical history Family History Mother History of asthma Father No problems noted. Maternal Grandmother History of asthma Social History Household Members: Family Household Members Other:: lives with mother Both parents involved: Yes Housing: Condominium Alcohol intake: former Patient Tobacco Use Status: Never used Tobacco Substance Use Type: Marijuana Trauma History: No service: No Current occupational status: employed Cognitive needs: No Hearing needs: No Vision needs: No Female Reproductive History Menstrual Age of Menarche: 8 Questionnaire PHQ-9 Over the last 2 weeks, how often have you been bothered by any of the following problems? 1. Little interest or pleasure in doing things: not at all 2. Feeling down, depressed, or hopeless: not at all 3. Trouble falling or staying asleep, or sleeping too much: not at all 4. Feeling tired or having little energy: not at all 5. Poor appetite or overeating: not at all 6. Feeling bad about yourself - or that you are a failure or have let yourself or your family down: not at all 7. Trouble concentrating on things, such as reading the newspaper or watching television: not at all 8. Moving or speaking so slowly that other people could have noticed. Or the opposite - being so fidgety or restless that you have been moving around a lot more than usual: not at all 9. Thoughts that you would be better off or of hurting yourself in some way: not at all Total score: 0 Depression Screening Interpretation: Negative 35854 - PHQ-9 Billing: Yes Source: Developed by Drs. Felix Rodriguez, Christi Hodge, Dieudonne Stephen and colleagues, with an educational sandor from [employer]. Thrive Questionnaire Date Thrive assessed: 07/08/23 I am a: Patient What is your living situation today?: I have a steady place to live Within the past 12 months, did the food you bought not last and you didn't have the money to get more?: Never true Within the past 12 months, did you worry whether your food would run out before you got money to buy more?: Never true Currently or been in a relationship where the following occur: no concerns reported AUDIT C Alcohol Use Questionnaire (AUDIT-C) 1. How often do you have a drink containing alcohol?: 2-3 times a week 2. How many drinks containing alcohol do you have on a typical day when you are drinking?: 1 or 2 3. How often do you have six or more drinks on one occasion?: Never Total Score: 3 Score Reviewed/Action Taken: No SIMON-7 AMB Questionnaire SIMON-7 Date SIMON - 7 assessed: 07/08/23 Feeling nervous, anxious, or on edge: 0 = Not at all Not being able to stop or control worryin = Not at all Worrying too much about different things: 0 = Not at all Trouble relaxin = Not at all Being so restless that it is hard to sit still: 0 = Not at all Becoming easily annoyed or irritable: 0 = Not at all Feeling afraid as if something awful might happen: 0 = Not at all Total SIMON-7 score (0-4 normal; 5-9 mild; 10-14 moderate; 15-21 severe): 0 Source: Developed by Drs. Felix Rodriguez, Christi Hodge, Dieudonne Stephen and colleagues, with an educational sandor from [employer]. SIMON-7 Assessment Billing SIMON-7 Assessment Tool: SIMON-7 Assessment 25158 Review of Systems Const Denies body aches, Denies chills, Denies fatigue and Denies fever(s) Eyes Denies change in vision ENT Denies otalgia, Reports nasal discharge, Denies sinus pain and Denies sore throat Card Denies chest pain, Denies edema, Denies lightheadedness and Denies dyspnea Resp Denies cough, Denies dyspnea and Denies wheezing GI Denies abdominal pain, Denies constipation, Denies diarrhea, Denies nausea and Denies vomiting Denies dysuria Musc Reports back pain, Denies myalgias, Denies numbness and Denies tingling Skin/Breast Denies rash Neuro Denies numbness and Denies tingling Endo Denies cold intolerance, Denies fatigue and Denies heat intolerance Aller/Immun Denies wheezing Physical exam (Primary Care) Vital Signs: Last Vital Signs Pulse 92 07/08/23 08:26 BP 110/68 07/08/23 08:26 Pulse Ox 99 07/08/23 08:26 Oxygen Delivery Method Room Air 07/08/23 08:26 BMI result Body Mass Index 43.0 Tobacco/Smoking Status: Tobacco use Status Tobacco use date assessed 07/08/23 07/08/23 08:29 Patient Tobacco Use Status Never used Tobacco 07/08/23 08:29 PHQ-9: PHQ-9 Score PHQ-9: Total score 0 07/08/23 08:29 Depression Screening Interpretation: Negative Thrive Assessment: Date of Thrive Assessment Date Thrive assessed 07/08/23 07/08/23 08:29 Currently or been in a relationship where the following occur: no concerns reported Const General: cooperative and no acute distress Orientation/consciousness: patient oriented x3 HENMT Head: Yes normocephalic and Yes atraumatic Ears: TM's normal bilaterally Face and sinus: Yes sinuses nontender Mouth: oropharynx normal and moist mucous membranes Throat: Yes posterior oropharynx normal Eyes General: appearance normal, both eyes and all related structures Pupils: Equal, round and reactive pupils present EOM: EOMs intact bilaterally Neck Neck: Yes normal visual inspection, Yes full ROM and Yes no lymphadenopathy Thyroid: Thyroid normal Resp Effort & Inspection: normal respiratory effort and able to speak in complete sentences Auscultation: clear to auscultation bilaterally, no crackles, no rales, no rhonchi and no wheezes Cardio Rate: regular rate Rhythm: regular rhythm Heart sounds: S1 normal heart sound present, S2 normal heart sound present and no murmurs GI Palpation (GI): Soft to palpation, not firm, nontender, no guarding, not rigid and no hepatosplenomegaly Auscultation: normal bowel sounds General: No CVA tenderness Back/Spine/Pelvis Back: No CVA tenderness Cervical Spine: cervical ROM normal, cervical muscular tenderness (Left) and No Cervical spine tenderness Thoracic/Lumbar Spine: thoraco-lumbar ROM normal, straight leg raise negative bilaterally, paraspinal muscle tenderness, thoracic spinal tenderness (upper aspect ) and lumbar spinal tenderness Skin General skin exam: no rashes or lesions noted Neuro General: patient oriented x3 Cranial nerves: Yes Equal, round and reactive pupils present Gait exam (Neuro): Normal gait present Extrem General: Yes full ROM and No edema Assessment and Plan Assessment & Plan (1) Morbid obesity with BMI of 40.0-44.9, adult: Code(s): E66.01 - Morbid (severe) obesity due to excess calories; Z68.41 - Body mass index [BMI] 40.0-44.9, adult Plan: Patient will be starting Ozempic through telehealth Encouraged healthy food choices and exercise as tolerated (2) Neck pain: Code(s): M54.2 - Cervicalgia Plan: Suspect musculoskeletal in origin Will treat with ibuprofen p.r.n. and cyclobenzaprine p.r.n. at bedtime-educated about drowsiness Physical therapy referral, follow-up if no improvement after physical therapy Encouraged heating packs p.r.n. (3) Back pain: Code(s): M54.9 - Dorsalgia, unspecified Plan: Suspect musculoskeletal in origin Will treat with ibuprofen p.r.n. and cyclobenzaprine p.r.n. at bedtime-educated about drowsiness Physical therapy referral, follow-up if no improvement after physical therapy Encouraged heating packs p.r.n. (4) Encounter to establish care: Code(s): Z76.89 - Persons encountering health services in other specified circumstances (5) Asthma: Code(s): J45.909 - Unspecified asthma, uncomplicated Plan: Stable Continue Ventolin p.r.n. Start loratadine daily p.r.n. for allergies Plan Follow-up in 6 months for PE and labs Orders: Orders Vitamin B12 and Folate Today Z76.89 - Persons encountering health services in other specified circumstances Comprehensive Met. Panel Today Z76.89 - Persons encountering health services in other specified circumstances TSH reflex Free T4 Today Z76.89 - Persons encountering health services in other specified circumstances Vitamin D 25-OH Total Today Z76.89 - Persons encountering health services in other specified circumstances Complete Blood Count Auto Diff Today Z76.89 - Persons encountering health services in other specified circumstances PT Evaluation and Treatment Today M54.2 - Cervicalgia, M54.9 - Dorsalgia, unspecified Medications: New loratadine 10 mg PO DAILY PRN 30 tabs 1RF allergy symptoms J45.909 - Unspecified asthma, uncomplicated albuterol sulfate 90 mcg/actuation (Ventolin HFA) 2 puffs inhalation Q4-6H PRN 8.5 grams 1RF shortness of breath or wheezing J45.909 - Unspecified asthma, uncomplicated cyclobenzaprine 5 mg PO BEDTIME PRN 10 tabs 0RF muscle spasm M54.2 - Cervicalgia, M54.9 - Dorsalgia, unspecified ibuprofen 600 mg PO Q8H PRN 20 tabs 0RF pain M54.2 - Cervicalgia, M54.9 - Dorsalgia, unspecified Coding Level of Care Code New Pt Level 4 (94645) Diagnoses Morbid obesity with BMI of 40.0-44.9, adult E66.01; Z68.41 Neck pain M54.2 Back pain M54.9 Encounter to establish care Z76.89 Asthma J45.909 Additional Codes SIMON-7 Assessment Billing - SIMON-7 Assessment Tool: SIMON-7 Assessment [id number] ([id number])
== END 2023-07-08 08:55 | disposition home or self-care (01) ==
PROVIDERS: PCP Nurse Practitioner Family; Visit Provider Nurse Practitioner Family
DX: J45.909 Unspecified asthma, uncomplicated (principal); M54.2 Cervicalgia; E66.01 Morbid (severe) obesity due to excess calories; Z68.41 Body mass index [BMI] 40.0-44.9, adult; M54.9 Dorsalgia, unspecified; Z76.89 Persons encountering health services in other specified circumstances
CPT/HCPCS: 99204

== ENCOUNTER 2023-10-07 13:48 | Outpatient (AMB) | payer OTHER, SELFPAY ==
[2023-10-07 15:21] VITALS: BP 112/66; PULSE 86; TEMP 36.4; O2SAT 97; BMI 39.4
--- NOTE | 2023-10-07 15:21 | AM.OFFWIN_ITS ---
Intake Vital Signs 10/07/23 15:21 Height 5 ft 2 in Weight 215 lb 8 oz BMI 39.4 BP 112/66 Blood Pressure Location Lt brachial Position Sitting Pulse 86 Pulse Source Pulse Oximeter Temp 97.6 F Temp Source Temporal Artery Scan Pulse Oximetry (%) 97 Oxygen Delivery Method Room Air Intake Visit Reasons: EP, back pain [phone] Intake Note: pt is here for c/o back pain denies injury Patient Tobacco Use Status: Never used Tobacco Allergies No Known Allergies Allergy (Verified 10/07/23 16:02) Medication List - Last Reconciled 10/07/23 by Bj Galenao MD albuterol sulfate 90 mcg/actuation (Ventolin HFA) 2 puffs inhalation Q4-6H PRN cyclobenzaprine 5 mg PO BEDTIME PRN ibuprofen 600 mg PO Q8H PRN loratadine 10 mg PO DAILY PRN multivitamin 1 tab PO DAILY Do you need a note to return to daycare/school/sports/work: Yes HPI EP, back pain [phone] HPI Details Patient presents to the office for a sick visit. Complaining of lower back pain for the past week. No history of fall or trauma prior to the onset of symptoms. No urinary incontinence. No fevers or chills. Pain is worse on b ending forwards or sideways. Relieve done sitting down. Pain is radiating into the gluteal area. [facility] Medical History Anemia Dysuria during in second trimester Early stage of Encounter for screening for malformation using ultrasound SARS-CoV-2 positive Surgical History No pertinent past surgical history Family History Mother History of asthma Father No problems noted. Maternal Grandmother History of asthma Social History Household Members: Family Household Members Other:: lives with mother Both parents involved: Yes Housing: Condominium Alcohol intake: former Patient Tobacco Use Status: Never used Tobacco Substance Use Type: Marijuana Trauma History: No service: No Current occupational status: employed Cognitive needs: No Hearing needs: No Vision needs: No Female Reproductive History Menstrual Age of Menarche: 8 Physical Exam Vital Signs: Last Vital Signs Temp 97.6 F 10/07/23 15:21 Pulse 86 10/07/23 15:21 BP 112/66 10/07/23 15:21 Pulse Ox 97 10/07/23 15:21 Oxygen Delivery Method Room Air 10/07/23 15:21 BMI result Body Mass Index 39.4 Const General: cooperative and healthy appearing Nutritional Appearance: well nourished Orientation/consciousness: patient oriented x3 Limitations: no limitations HEENT Head: Yes normal to inspection Eyes General: appearance normal, both eyes and all related structures Neck Neck: Yes normal visual inspection Chest Chest palpation & inspection: normal palpation of entire chest wall Resp Effort & Inspection: normal respiratory effort Neuro General: patient oriented x3 Assessment & Plan Assessment & Plan (1) Back pain: Code(s): M54.9 - Dorsalgia, unspecified Plan: Meloxicam and cyclobenzaprine called in. . Patient was advised rest. Note for work if necessary provided. Once pain symptoms subside, patient should start physical therapy. If symptoms worsen to follow-up here. Coding Level of Care Code Est Pt Level 3 (29278) Diagnoses Back pain M54.9
== END 2023-10-07 16:20 | disposition home or self-care (01) ==
PROVIDERS: PCP Nurse Practitioner Family; Visit Provider Internal Medicine
DX: M54.9 Dorsalgia, unspecified (principal)
CPT/HCPCS: 99213